=== PATIENT | female | born 2005 | race Caucasian/White ===

== ENCOUNTER 2024-02-15 19:06 | Emergency (ER) | payer MEDICAID ==
[~2024-02-15] VITALS: Ht 162.6 cm; Wt 54.5 kg
[2024-02-15 19:08] VITALS: BP 99/75; PULSE 88; RESP 14; O2SAT 98
[2024-02-15] MEDS ORDERED: NEOM1OIN8 TOP (19:29)
[2024-02-15] MEDS: bacitracin 15gm ointment TP ONE (19:47)
[2024-02-15 19:48] VITALS: TEMP 98.6
== END 2024-02-15 19:51 | disposition home or self-care (01) ==
LOC: ER 19:07
DX: L97.819 Non-pressure chronic ulcer of other part of right lower leg with unspecified severity (principal)
CPT/HCPCS: 99282; A6258

== ENCOUNTER 2024-04-16 09:45 | Emergency (ER) | payer MEDICAID ==
[~2024-04-16] VITALS: Ht 162.6 cm; Wt 48.6 kg
[~2024-04-16 09:45] MED LIST: NEOM1OIN8 TOP
[2024-04-16 09:57] VITALS: BP 123/85; PULSE 72; O2SAT 95
[2024-04-16 11:28] LABS: BASOPHILS % (AUTO) 0.3 % (0-1); EOSINOPHILS % (AUTO) 0.5 % (0-6); HEMATOCRIT 33.8 % (35.0-45.0); HEMOGLOBIN 11.4 g/dl (12.0-16.0); LYMPHOCYTES # (AUTO) 1.3 X10'3 (1.1-4.8); LYMPHOCYTES % (AUTO) 17.7 % (21-51); MEAN CORPUSCULAR HEMOGLOBIN 30.1 PG (27.0-31.0); MEAN CORPUSCULAR HGB CONC 33.9 g/dL (33.0-36.5); MEAN CORPUSCULAR VOLUME 88.9 FL (78-98); MEAN PLATELET VOLUME 8.1 FL (7.4-10.4); MONOCYTES # (AUTO) 0.4 X10'3 (0-0.9); MONOCYTES % (AUTO) 5.1 % (2-12); NEUTROPHILS # (AUTO) 5.7 X10'3 (1.8-7.7); NEUTROPHILS % (AUTO) 76.4 % (42-75); PLATELET COUNT 279 X10'3 (140-440); RED CELL DISTRIBUTION WIDTH 12.7 % (11.5-14.5); WHITE BLOOD COUNT 7.4 X10'3 (4.5-11.0)
[2024-04-16 11:56] LABS: ALANINE AMINOTRANSFERASE 21 U/L (12-78); ALBUMIN 3.8 G/DL (3.4-5.0); ALBUMIN/GLOBULIN RATIO 0.9 (1.1-1.5); ALKALINE PHOSPHATASE 97 IU/L (20-180); ANION GAP 5 (8-16); ASPARTATE AMINO TRANSFERASE 22 U/L (10-37); BILIRUBIN,TOTAL 0.4 MG/DL (0.1-1.0); BLOOD UREA NITROGEN 8 MG/DL (7-18); BUN/CREATININE RATIO 11.9 (10.0-20.0); CALCIUM 8.4 MG/DL (8.5-10.1); CHLORIDE 103 MMOL/L (99-107); CREATININE 0.67 MG/DL (0.40-0.90); GLUCOSE 91 MG/DL (70-104); POTASSIUM 3.8 MMOL/L (3.5-5.1); SODIUM 139 MMOL/L (135-145); TOTAL CARBON DIOXIDE 30.6 MMOL/L (24-32); TOTAL PROTEIN 8.1 G/DL (6.4-8.2); eCRCL 103 ML/MIN; eGFR > 90 ML/MIN
[2024-04-16 13:31] LABS: BILIRUBIN,URINE NEGATIVE (Neg); CLARITY,URINE CLOUDY (Clear); COLOR,URINE YELLOW (Yellow); GLUCOSE, URINE NEGATIVE (Neg); KETONES,URINE TRACE mg/dl (Neg); LEUKOCYTE ESTERASE ,URINE NEGATIVE (Neg); NITRITES, URINE NEGATIVE (Neg); OCCULT BLOOD,URINE LARGE (Neg); PROTEIN,URINE TRACE mg/dl (Neg); UROBILINOGEN,URINE 0.2 E.U/dL (0.2-1.0)
[2024-04-16 13:32] LABS: URINE HCG NEGATIVE (NEG)
[2024-04-16 13:36] LABS: UA COLLECTION TYPE CLN CATCH MIDSTREAM
[2024-04-16 13:38] LABS: BACTERIA,URINE 1+ /HPF (Neg); MUCUS STRANDS FEW /LPF (Neg); RBC,URINE TNTC /HPF (0-2); SQUAMOUS EPITHELIAL CELL,UR FEW /LPF (FEW); TRANSITIONAL EPI CELLS,URINE FEW /HPF; WBC,URINE 0-4 /HPF (0-4)
[2024-04-16 15:34] VITALS: RESP 16
[2024-04-16] MEDS: dicyclomine 10 MG capsule PO ONE (15:34)
[2024-04-16] MEDS: ketorolac trometh 30MG/ML vial 30 MG/ML VIAL IM ONE (15:34)
[2024-04-16] MEDS ORDERED: IBUP-1984 PO (15:51)
[2024-04-16] MEDS ORDERED: DICY20TA18 PO (15:51)
[2024-04-16 16:06] VITALS: TEMP 99.2
== END 2024-04-16 16:11 | disposition home or self-care (01) ==
LOC: ER 09:45
DX: R10.31 Right lower quadrant pain (principal); Z79.899 Other long term (current) drug therapy; Z79.2 Long term (current) use of antibiotics
CPT/HCPCS: 36415; 76700; 80053; 81001; 81025; 85025; 96372; 99285; J1885

== ENCOUNTER 2024-07-09 14:00 | Emergency (ER) | payer MEDICAID ==
[~2024-07-09] VITALS: Ht 162.6 cm; Wt 60.3 kg
[~2024-07-09 14:00] MED LIST changes: +DICY20TA18 PO
[2024-07-09 15:09] LABS: BILIRUBIN,URINE NEGATIVE (Neg); CLARITY,URINE SLIGHTLY CLOUDY (Clear); COLOR,URINE YELLOW (Yellow); GLUCOSE, URINE NEGATIVE (Neg); KETONES,URINE NEGATIVE (Neg); LEUKOCYTE ESTERASE ,URINE NEGATIVE (Neg); NITRITES, URINE NEGATIVE (Neg); OCCULT BLOOD,URINE LARGE (Neg); PROTEIN,URINE NEGATIVE (Neg); UROBILINOGEN,URINE 0.2 E.U/dL (0.2-1.0)
[2024-07-09 15:14] LABS: UA COLLECTION TYPE CLN CATCH MIDSTREAM
[2024-07-09 15:17] LABS: URINE HCG NEGATIVE (NEG)
[2024-07-09 15:20] LABS: BACTERIA,URINE FEW /HPF (Neg); MUCUS STRANDS FEW /LPF (Neg); SQUAMOUS EPITHELIAL CELL,UR FEW /LPF (FEW)
[2024-07-09] MEDS ORDERED: CEPH-585 PO (16:12)
[2024-07-09 16:24] VITALS: BP 104/68; PULSE 73; RESP 16; TEMP 97.7; O2SAT 99
== END 2024-07-09 16:23 | disposition home or self-care (01) ==
LOC: ER 14:01
DX: O26.90 Pregnancy related conditions, unspecified, unspecified trimester (principal); N39.0 Urinary tract infection, site not specified
CPT/HCPCS: 36415; 81001; 81025; 84702; 99283

== ENCOUNTER 2024-11-22 18:08 | Emergency (ER) | payer MEDICAID ==
[~2024-11-22] VITALS: Ht 162.6 cm; Wt 62.2 kg
[~2024-11-22 18:08] MED LIST changes: +CEPH-585 PO
[2024-11-22 18:16] VITALS: BP 118/79
[2024-11-22] MEDS ORDERED: NO HOME MEDS (18:48)
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
[2024-11-22 20:31] VITALS: PULSE 53; RESP 10; TEMP 98.1; O2SAT 99
== END 2024-11-22 20:33 | disposition home or self-care (01) ==
LOC: ER 18:09
DX: Z77.21 Contact with and (suspected) exposure to potentially hazardous body fluids (principal); W46.0XXA Contact with hypodermic needle, initial encounter; Y93.01 Activity, walking, marching and hiking; Y92.89 Other specified places as the place of occurrence of the external cause; Y99.0 Civilian activity done for income or pay
CPT/HCPCS: 99283

== ENCOUNTER 2024-12-31 21:08 | Emergency (ER) | payer MEDICAID ==
[~2024-12-31] VITALS: Ht 162.6 cm; Wt 53.5 kg
[~2024-12-31 21:08] MED LIST changes: -CEPH-585 PO; -DICY20TA18 PO; -NEOM1OIN8 TOP; +NO HOME MEDS
--- NOTE | 2024-12-31 21:31 | Physician Documentation ---
History of Present Illness General Chief Complaint: Mental Health Eval Stated Complaint: MH Time Seen by MD: 21:31 Primary Medical Doctor: [facility] History of Present Illness Initial Comments 19 y/o female complains of suicidal ideations. Patient states she wants to kill herself. Patient states she has had suicidal thoughts for last two years. Patient states she wants to cut her wrists. Patient does admit to some superficial lacerations and said that she caused herself on her left arm. The patient denies any homicidal thoughts the patient denies any delusions or hallucinations. The patient denies any substance use. Patient's symptoms are moderate and persistent. Patient denies any recent illness no fevers chills nausea or vomiting. She states she has a history of depression she is not currently taking any medications. Medication Reconciliation Allergies: Coded Allergies: No Known Allergies (Unverified , 11/22/24) Miscellaneous Medications Home Med List (No Home Medications), (Reported) Past Medical History Past Medical History: No Pertinent History Past Surgical History: no surgical history Alcohol Use: None Drug Use: none Lives with: Family Lives In: Home Occupation: child Review of Systems All Other Systems at this time: Reviewed and Negative Physical Exam Physical Exam Vital Signs: Temperature: 97.4, Source: Temporal, Heart Rate: 92, Respiratory Rate: 16, BP: 130/77, Pulse Oximetry: 98, Weight: 53.500 Oxygen Flow Rate: 0 Physical Exam VITALS: Reviewed and as above. GENERAL: Alert, no apparent distress. HEENT: Normocephalic, atraumatic, PERRL, EOMI, dry mucosa, no erythema RESPIRATORY: Lungs clear, normal breath sounds, no respiratory distress. CHEST: No accessory muscle use, no retractions CV: Regular rate, rhythm, no edema, no murmur, No: JVD GI: Soft, non-tender, bowels sounds present, no rebound, guarding, or rigidity BACK: No CVA tenderness, or swelling MUSCULOSKELETAL: No deformities, no edema SKIN: Warm and dry, no rash NEURO: Oriented x4, No motor or sensory deficit PSYCH: Normal mood and affect, suicidal ideations no homicidal ideations Progress Results/Orders Results/Orders Orders - OHL,JOSE Alicia MD Covid19 Binax Poc Result Entry (12/31/24 21:26) 1799.11 (12/31/24 ) Close Observation Level (01/01/25 06:27) Completed Orders - OHLFS,JOSE Alicia MD Cbc/Diff (12/31/24 21:22) CMP (12/31/24 21:22) Drug Screen, Urine (12/31/24 21:22) TSH (12/31/24 21:22) Hcg, Ur Ql (12/31/24 21:40) Regular Diet (01/01/25 Breakfast) * Vital Signs Routine* (01/01/25 05:27) Vital Signs 12/31/24 12/31/24 01/01/25 01/01/25 21:13 21:49 05:53 10:14 Temp 97.4 98.1 Pulse 92 74 80 Resp 16 14 14 16 B/P (MAP) 130/77 113/89 (97) 104/61 Pulse Ox 98 99 99 O2 Flow Rate 0 0 Laboratory Tests Test 12/31/24 21:23 12/31/24 21:43 12/31/24 21:45 White Blood Count 6.4 Red Blood Count 3.96 L Hemoglobin 11.3 L Hematocrit 33.9 L Mean Corpuscular Volume 85.5 Mean Corpuscular Hemoglobin 28.4 Mean Corpuscular Hemoglobin Concent 33.3 Red Cell Distribution Width 15.5 H Platelet Count 242 Mean Platelet Volume 8.6 Neutrophils (%) (Auto) 54.7 Lymphocytes (%) (Auto) 36.3 Monocytes (%) (Auto) 7.1 Eosinophils (%) (Auto) 1.6 Basophils (%) (Auto) 0.3 Neutrophils # (Auto) 3.5 Lymphocytes # (Auto) 2.3 Monocytes # (Auto) 0.5 Eosinophils # (Auto) 0.1 Basophils # (Auto) 0.0 CBC Comment Sodium Level 139 Potassium Level 3.7 Chloride Level 104 Carbon Dioxide Level 27.7 Anion Gap 7 L Blood Urea Nitrogen 13 Creatinine 0.76 Estimated GFR/1.73 m2 > 90 BUN/Creatinine Ratio 17.1 Glucose Level 108 H Calcium Level 9.0 Total Bilirubin 0.3 Aspartate Amino Transf (AST/SGOT) 16 Alanine Aminotransferase (ALT/SGPT) 17 Alkaline Phosphatase 107 Total Protein 8.2 Albumin 4.1 Globulin 4.1 Albumin/Globulin Ratio 1.0 L Thyroid Stimulating Hormone (TSH) 2.64 Chemistry Comments Urine HCG, Qualitative Negative Urine Opiates Screen Negative Urine Methadone Screen Negative Urine Fentanyl Screen Negative Urine Barbiturates Screen Negative Urine Phencyclidine Screen Negative Urine Amphetamines Screen Negative Urine Benzodiazepines Screen Negative Urine Cocaine Screen Negative Urine Cannabinoids Screen Negative Drug Screen Comment SARS-CoV-2 Antigen (Rapid) Negative Medical Decision Making Findings The patient is medically cleared for mental health evaluation 10:20 A.M.: PATIENT HAS BEEN EVALUATED BY [facility]. THEY DO NOT BELIEVE SHE MEETS [facility] AND WILL BE RELEASED. PATIENT NO FOLLOW [facility] RECOMMENDATIONS. Departure Time of Disposition: 10:23 Disposition: 01 HOME / SELF CARE / HOMELESS Impression: Primary Impression: Suicidal ideation Discharge Instructions: Suicidal Feelings: How to Help Yourself Additional Instructions: Transfer orders for [facility]: At this time there is no evidence of an emergent medical condition that would preclude (admission/transfer) to a psychiatric unit via [facility] protocol for further psychiatric, as well as medical evaluation and treatment. At this time I have no reason to believe that transfer via [facility] protocol would have serious medical compromise in the patient's health. FOLLOW UP WITH [facility] AND THEIR RECOMMENDATIONS. Referrals: NO PRIMARY CARE PROVIDER (PCP) Signature Scribe Signature: , Attestation: , JOSE TURK MD Dec 31, 2024 21:31 SADA RODAS MD Jan 01, 2025 10:24
[2024-12-31 21:39] LABS: MEAN PLATELET VOLUME 8.6 FL (7.4-10.4); RED CELL DISTRIBUTION WIDTH 15.5 % (11.5-14.5)
[2024-12-31 22:01] LABS: CREATININE 0.76 MG/DL (0.40-0.90); TOTAL CARBON DIOXIDE 27.7 MMOL/L (24-32); eCRCL 99 ML/MIN; eGFR > 90 ML/MIN
[2024-12-31 22:06] LABS: URINE HCG NEGATIVE (NEG)
[2024-12-31 22:07] LABS: URINE AMPHETAMINE SCREEN NEGATIVE (Neg); URINE BARBITUATE SCREEN NEGATIVE (Neg); URINE BENZODIAZEPINES SCREEN NEGATIVE (Neg); URINE CANNABINOID SCREEN NEGATIVE (Neg); URINE COCAINE SCREEN NEGATIVE (Neg); URINE METHADONE SCREEN NEGATIVE (Neg); URINE OPIATE SCREEN NEGATIVE (Neg); URINE PHENCYCLIDINE SCREEN NEGATIVE (Neg)
[2025-01-01 10:14] VITALS: BP 104/61; PULSE 80; RESP 16; O2SAT 99
== END 2025-01-01 10:34 | disposition home or self-care (01) ==
LOC: ER 21:09
DX: R45.851 Suicidal ideations (principal); Z20.822 Contact with and (suspected) exposure to COVID-19; Z79.899 Other long term (current) drug therapy
CPT/HCPCS: 36415; 80053; 80305; 81025; 84443; 85025; 87811; 99285

== ENCOUNTER 2025-01-31 18:50 | Emergency (ER) | payer MEDICAID ==
[~2025-01-31] VITALS: Ht 162.6 cm; Wt 70.0 kg
[2025-01-31 18:59] VITALS: BP 113/75; PULSE 85; RESP 18; O2SAT 98
[2025-01-31 19:49] LABS: URINE HCG NEGATIVE (NEG)
[2025-01-31 19:56] LABS: LEUKOCYTE ESTERASE ,URINE NEGATIVE (Neg); NITRITES, URINE NEGATIVE (Neg); OCCULT BLOOD,URINE LARGE (Neg)
[2025-01-31 20:09] LABS: UA COLLECTION TYPE NON-SPECIFIED
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
[2025-01-31 20:16] LABS: MUCUS STRANDS MANY /LPF (Neg); SQUAMOUS EPITHELIAL CELL,UR MODERATE /LPF (FEW)
--- NOTE | 2025-01-31 20:24 | RADIOLOGY REPORT ---
ABDOMEN, (KUB) ONE VIEW REASON FOR EXAM: abdominal contusion COMPARISON: US ULTRASOUND OF ABDOMEN on DOS: 04/16/24 TECHNIQUE: A single upright view of the abdomen is obtained. FINDINGS: The bowel gas pattern is nonobstructive. The colonic stool burden is small. There is no evidence of pneumoperitoneum. No acute osseous abnormality is identified. IMPRESSION: No acute abnormality.
[2025-01-31 20:38] VITALS: TEMP 97.2
== END 2025-01-31 20:38 | disposition home or self-care (01) ==
LOC: ER 18:50
DX: S39.81XA Other specified injuries of abdomen, initial encounter (principal); R10.12 Left upper quadrant pain; X58.XXXA Exposure to other specified factors, initial encounter; Y93.89 Activity, other specified; Y92.89 Other specified places as the place of occurrence of the external cause; Y99.8 Other external cause status
CPT/HCPCS: 74018; 81001; 81025; 99284